=== PATIENT | male | born 1950 | race Caucasian/White ===

== ENCOUNTER 2017-01-15 12:46 | Outpatient (CLI) | payer MEDICARE, OTHER ==
--- NOTE | 2017-01-15 17:08 | XRAY Report ---
TWO VIEW CHEST: 01/15/2017 CLINICAL INDICATION: Cough, hemoptysis. Frontal and lateral views of the chest are compared to previous films of 01/08/[address] 11/06. The cardiac silhouette is within normal limits. Emphysematous changes are stable. There is new consolidation at the right apex. No effusion or pneumothorax is present. IMPRESSION: NEW RIGHT UPPER LOBE CONSOLIDATION, SUPERIMPOSED UPON EMPHYSEMA. FOLLOWUP FILMS FOLLOWI NG APPROPRIATE ANTIBIOTIC THERAPY ARE RECOMMENDED TO DOCUMENT RESOLUTION. JOB #: [id number] EXT JOB #:[id number]
== END 2017-01-15 12:47 | disposition home or self-care (01) ==
LOC: DI 12:46
PROVIDERS: ATTEND Internal Medicine
DX: R91.8 Other nonspecific abnormal finding of lung field (principal); J43.9 Emphysema, unspecified
CPT/HCPCS: 71020

== ENCOUNTER 2017-01-20 10:04 | Outpatient (CLI) | payer MEDICARE, OTHER ==
--- NOTE | 2017-01-20 15:27 | CT Report ---
EXAM: CT CHEST EXAM DATE: 01/20/2017 10:22 AM. CLINICAL HISTORY: Pneumonia COMPARISONS: 11/20/2011, 01/15/2017. TECHNIQUE: Routine helical CT imaging was performed through the chest. IV contrast: None. Reconstruct ions: Coronal and sagittal. In accordance with CT protocol optimization, one or more of the following dose reduction techniques w ere utilized for this exam: automated exposure control, adjustment of mA and/or KV based on patient s ize, or use of iterative reconstructive technique. FINDINGS: Lungs/Pleura: There is a heterogeneous, thick-walled cavitary lesion within the right lung apex. Ther e is some linear hyperdensity which could represent surgical sutures or calcification. There is some right upper lung architectural distortion. There is underlying paraseptal emphysema. There is no evidence of acute consolidation. No pleural eff usion. Mediastinum: Heart size is within normal limits. There are no enlarged axillary, supraclavicular, med iastinal, or hilar lymph nodes. Bones: No acute bony abnormalities are seen. There is increased paravertebral bony formation within t he upper thoracic spine. This is unchanged. Visualized Abdomen: The visualized portions of the upper abdominal organs demonstrate no acute abnorm alities. Other: None. IMPRESSION: 1. Heterogeneous right apical density including thick-walled cavitary lesion, soft tissue component, bronchiectasis, and architectural distortion. Differential considerations include atypical infection, scarring, and/or mass. Six-month interval follow-up may be of utility to exclude developing mass in this region. 2. There is underlying paraseptal emphysema. 3. No acute pulmonary process. 4. Heart size is within normal limits. [facility] Referring Provider Line: [phone] SITE ID: [id number]
== END 2017-01-20 10:05 | disposition home or self-care (01) ==
LOC: DI 10:04
PROVIDERS: ATTEND Internal Medicine
DX: J15.9 Unspecified bacterial pneumonia (principal); J47.9 Bronchiectasis, uncomplicated; J43.9 Emphysema, unspecified
CPT/HCPCS: 71250

== ENCOUNTER 2017-02-02 08:53 | Outpatient (CLI) | payer MEDICARE, OTHER ==
--- NOTE | 2017-02-02 11:00 | XRAY Report ---
TWO VIEW CHEST: 02/02/2017 CLINICAL INDICATION: Followup lung mass. COMPARISON: CT of 01/20/2017, chest x-ray of 01/15/2017. FINDINGS: The cardiac silhouette is within normal limits. Right apical parenchymal opacity, with cys tic changes, persists. There has been no significant interval change. No effusion or pneumothorax is identified. IMPRESSION: STABLE RIGHT APICAL PARENCHYMAL OPACITY WITH CYSTIC CHANGES. NO SIGNIFICANT INTERVAL ORAL NGE. JOB #: [id number] EXT JOB #:[id number]
== END 2017-02-02 08:54 | disposition home or self-care (01) ==
LOC: DI 08:53
PROVIDERS: ATTEND Internal Medicine Critical Care Medicine
DX: R91.8 Other nonspecific abnormal finding of lung field (principal)
CPT/HCPCS: 71020

== ENCOUNTER 2017-02-15 14:43 | Outpatient (CLI) | payer MEDICARE, OTHER ==
[2017-02-15 15:58] LABS: BASOPHILS % (AUTO) 0.1 %; HCT - HEMATOCRIT 38.1 % (42.0-52.0); HGB - HEMOGLOBIN 12.6 g/dL (14.0-18.0); LYMPHOCYTES # (AUTO) 0.5 10^3/uL (1.5-3.5); LYMPHOCYTES % (AUTO) 4.6 %; MEAN CORPUSCULAR HEMOGLOBIN 31.4 pg (27.0-31.0); MEAN CORPUSCULAR VOLUME 95.1 fL (80.0-94.0); MEAN PLATELET VOLUME 7.3 fL (7.4-11.4); MONOCYTES # (AUTO) 0.5 10^3/uL (0.0-1.0); MONOCYTES % (AUTO) 4.3 %; NEUTROPHILS # (AUTO) 9.9 10^3/uL (1.5-6.6); RED BLOOD COUNT 4.01 10^6/uL (4.70-6.10); RED CELL DISTRIBUTION WIDTH 13.6 % (12.0-15.0); UNCORRECTED WHITE BLOOD COUNT 10.9 x10^3/uL; WHITE BLOOD COUNT 10.9 x10^3/uL (4.8-10.8)
[2017-02-16 15:37] LABS: TEST RESULT REPORT (())
[2017-02-19 11:07] LABS: TEST RESULT REPORT (())
[2017-02-19 14:26] LABS: TEST RESULT REPORT (())
== END 2017-02-15 14:44 | disposition home or self-care (01) ==
LOC: LAB 14:43
PROVIDERS: ATTEND Internal Medicine Critical Care Medicine
DX: R04.89 Hemorrhage from other sites in respiratory passages (principal); R91.8 Other nonspecific abnormal finding of lung field
CPT/HCPCS: 36415; 81599; 85025; 86003; 87305

== ENCOUNTER 2017-03-02 08:44 | Outpatient (CLI) | payer MEDICARE, OTHER ==
--- NOTE | 2017-03-02 11:09 | Ultrasound Report ---
RENAL ULTRASOUND: 03/02/2017 CLINICAL INDICATION: Possible mass on outside PET/CT. TECHNIQUE: Real-time scanning was performed with congressional representative static images obtained. FINDINGS: The right kidney measures 12.0 x 5.9 x 6.1 cm, and demonstrates a 1.9 cm cyst. No solid m ass, hydronephrosis, or perinephric collection is seen. The left kidney measures 11.1 x 6.0 x 5.6 cm. Two cortical cysts are seen, the larger measuring 3.3 cm and the smaller measuring 2.8 cm. No solid renal mass, hydronephrosis, or perinephric collection is seen. Prevoid, the bladder measures 5.4 x 5.3 x 5.1 cm, yielding a prevoid volume of 78 mL. Bilateral uret eral jets are visualized. No postvoid residual is present. IMPRESSION: BILATERAL RENAL CYSTS. NO SOLID RENAL MASS IS IDENTIFIED. JOB #: [id number] EXT JOB #:[id number]
== END 2017-03-02 08:45 | disposition home or self-care (01) ==
LOC: DI 08:44
PROVIDERS: ATTEND Internal Medicine Critical Care Medicine
DX: N28.1 Cyst of kidney, acquired (principal)
CPT/HCPCS: 76770

== ENCOUNTER 2017-03-11 21:20 | Emergency (ER) | payer MEDICARE, OTHER ==
[2017-03-12 00:17] LABS: BASOPHILS % (AUTO) 0.2 %; EOSINOPHILS # (AUTO) 0.1 10^3/uL (0.0-0.7); EOSINOPHILS % (AUTO) 0.7 %; HCT - HEMATOCRIT 35.5 % (42.0-52.0); HGB - HEMOGLOBIN 12.1 g/dL (14.0-18.0); LYMPHOCYTES # (AUTO) 0.8 10^3/uL (1.5-3.5); LYMPHOCYTES % (AUTO) 7.2 %; MEAN CORPUSCULAR HGB CONC 34.1 g/dL (32.0-36.0); MEAN CORPUSCULAR VOLUME 93.7 fL (80.0-94.0); MEAN PLATELET VOLUME 7.1 fL (7.4-11.4); MONOCYTES # (AUTO) 0.9 10^3/uL (0.0-1.0); MONOCYTES % (AUTO) 8.1 %; NEUTROPHILS # (AUTO) 9.3 10^3/uL (1.5-6.6); NEUTROPHILS % (AUTO) 83.8 %; NUCLEATED RED BLOOD CELLS AUTO 0.1 /100WBC; RED BLOOD COUNT 3.79 10^6/uL (4.70-6.10); RED CELL DISTRIBUTION WIDTH 14.4 % (12.0-15.0); UNCORRECTED WHITE BLOOD COUNT 11.1 x10^3/uL; WHITE BLOOD COUNT 11.1 x10^3/uL (4.8-10.8)
[2017-03-12 00:23] LABS: INR 1.1 (0.8-1.2); PT - PROTHROMBIN TIME 12.3 secs (9.9-12.6)
[2017-03-12 00:28] LABS: ALBUMIN/GLOBULIN RATIO 0.9 (1.0-2.2); BILIRUBIN,TOTAL 0.5 mg/dL (0.2-1.0); CALCIUM 9.2 mg/dL (8.5-10.3); CREATININE 1.1 mg/dL (0.6-1.2); POTASSIUM 4.1 mmol/L (3.5-5.0); TOTAL PROTEIN 7.2 g/dL (6.7-8.2)
[2017-03-12] MEDS ORDERED: IOPAMIDOL-300 100 ML VIAL IVP ONE (01:16)
--- NOTE | 2017-03-12 02:23 | CT Preliminary Report ---
Exam: CT Chest Angio (PE) IMPRESSION: 1. Normal pulmonary CT angiogram. No pulmonary emboli. 2. Worsening right upper lobe consolidation adjacent to the large cavitary lesion in the right upper lobe. The cavitary lesion appears to be enlarging and now has increasing debris within the lumen. No discrete lung mass is noted. Associated findings include architectural distortion and bronchiectasis. The presence of new debris raises the possibility of superinfection such as a mycetoma. Complete dif ferential would include an underlying ulnar mass and a sequela of an infectious or inflammatory proce ss. 3. Paraseptal emphysema redemonstrated. No pneumothorax or effusions. 4. No new bulky pathologic mediastinal or hilar adenopathy. [facility] SITE ID: [id number]
--- NOTE | 2017-03-12 02:37 | CT Report ---
EXAM: CT ANGIOGRAM CHEST EXAM DATE: 03/12/2017 01:23 AM. CLINICAL HISTORY: Worsening hemoptysis cavitary lesion. COMPARISON: 01/20/2017. TECHNIQUE: Routine helical imaging was performed through the chest in the pulmonary arterial phase. I V Contrast: 80 mL Isovue-300. Reconstructions: Coronal 3D MIP reconstructions.Sagittal and coronal. In accordance with CT protocol optimization, one or more of the following dose reduction techniques w ere utilized for this exam: automated exposure control, adjustment of mA and/or KV based on patient s ize, or use of iterative reconstructive technique. FINDINGS: Pulmonary Arteries: Diagnostic quality: Adequate through the segmental arteries. No evidence for acute or chronic pulmona ry emboli. RV/LV is within normal limits. There is no interventricular septal bowing. There is no reflux of cont rast material in the IVC. Lungs/Pleura: As before, there is a thick-walled cavitary lesion in the right lung apex with increasi ng luminal debris. Associated findings include significant degrees of bronchiectasis and adjacent are as of consolidation which have both increased since the prior study. Marked adjacent pleural thickeni ng is also noted as before. No active extravasation of contrast. Linear radiopaque calcifications or sutures are seen at the margins of the right lung apex cavitary lesion. Findings could represent post surgical sutures given the stable width of the structure rather than the typical irregularity seen in dystrophic calcifications. Moderate bronchial wall thickening is present in both estefani worse on the r ight than on the left. No endobronchial lesion is identified. Baseline paraseptal emphysema is similar to the previous CT of the chest. No new concerning lung mass or nodule. No left pneumothorax or effusion. Mild left lower lobe atelectasis. Mediastinum: Normal. No cardiac enlargement or adenopathy. Thoracic Aorta: Extensive atheromatous calcified plaques noted in a nondilated thoracic aorta. Thorac ic aorta is ectatic. Upper Abdomen: Incidental small hiatal hernia noted. No acute abnormality in the upper abdomen. Other: Heterogeneous enhancement of the thyroid gland. No supraclavicular or axillary adenopathy is n oted. The subcutaneous soft tissues of the chest wall are normal. 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 No new osteoblastic or osteolytic lesio ns are noted. IMPRESSION: 1. Normal pulmonary CT angiogram. No pulmonary emboli. 2. Worsening right upper lobe consolidation adjacent to the large cavitary lesion in the right upper lobe. The cavitary lesion appears to be enlarging and now has increasing debris within the lumen. No discrete lung mass is noted. Associated findings include architectural distortion and bronchiectasis. The presence of new debris raises the possibility of superinfection such as a mycetoma. Complete dif ferential would include an underlying pulmonary mass and the sequela of an infectious or inflammatory process. 3. Paraseptal emphysema redemonstrated. No pneumothorax or effusions. 4. No new bulky pathologic mediastinal or hilar adenopathy. [facility] Referring Provider Line: [phone] SITE ID: [id number]
--- NOTE | 2017-03-12 02:49 | ED Physician Documentation ---
PD HPI DYSPNEA - Stated complaint Stated Complaint: COUGHING UP BLOOD - Chief complaint Chief Complaint: Resp - History obtained from History obtained from: Patient, Family - History of Present Illness Timing - onset: Chronic Timing - details: Gradual onset, Still present Associated symptoms: Cough, Hemoptysis. No: Wheezing, Chest pain / discomfort, Palpitations Similar symptoms before: Work up / diagnostics, Treatment, Follow up Recently seen: Clinic - Additional information Additional information: Patient is a 66 year old male who is presenting to the emergency department for coughing up blood. Patient states that the symptoms have been going on for months. Patient has seen two different specialists and has CT and bronchs done. Patient states that he has taken antibiotics and is currently on antifungals. Patient states that the blood had subsided but starting yesterday he started coughing up blood again so he came in for evaluation. Aside from the coughing blood patient states he feels well. Review of Systems Constitutional: denies: Fever, Chills Eyes: denies: Decreased vision Ears: denies: Ear pain, Drainage/discharge Nose: denies: Rhinorrhea / runny nose, Congestion Throat: denies: Sore throat Cardiac: denies: Chest pain / pressure, Palpitations, Calf pain Respiratory: reports: Cough, Hemoptysis GI: denies: Nausea, Vomiting Skin: denies: Rash, Lesions Musculoskeletal: denies: Back pain, Extremity pain, Joint pain Endocrine: denies: Easy bruising / bleeding Immunocompromised: denies: Immunocompromised PD PAST MEDICAL HISTORY - Allergies Allergies/Adverse Reactions: Allergies Allergy/AdvReac Type Severity Reaction Status Date / Time No Known Drug Allergies Allergy Verified 03/11/17 21:30 PD ED PE NORMAL - Vitals Vital signs reviewed: Yes - General General: Alert and oriented X 3, No acute distress, Well developed/nourished - HEENT HEENT: Atraumatic, PERRL - Neck Neck: Supple, no meningeal sign, No JVD - Cardiac Cardiac: RRR, No murmur - Respiratory Respiratory: No respiratory distress - Abdomen Abdomen: Soft, Non tender, Non distended - Derm Derm: Normal color, Warm and dry, No rash - Extremities Extremities: No deformity, No edema - Neuro Neuro: Alert and oriented X 3, 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, No motor deficit, No sensory deficit, Normal speech - Psych Psych: Normal mood, Normal affect PD ED PE EXPANDED - Respiratory Respiratory: Rhonchi, Right upper lobe Results - Vitals Vitals: Vital Signs - 24 hr 03/11/17 21:28 Temperature 36.4 C L Heart Rate 81 Respiratory 18 Rate Blood Pressure 167/90 H O2 Saturation 99 Oxygen O2 Source Room air - Labs Labs: Laboratory Tests 03/12/17 03/12/17 03/12/17 00:09 00:09 00:09 WBC 11.1 H RBC 3.79 L Hgb 12.1 L Hct 35.5 L MCV 93.7 MCH 32.0 H MCHC 34.1 RDW 14.4 Plt Count 186 MPV 7.1 L Neut # 9.3 H Lymph # 0.8 L [place] # 0.9 Eos # 0.1 Baso # 0.0 Absolute Nucleated RBC 0.02 Nucleated RBCs 0.1 PT 12.3 INR 1.1 APTT 28.0 Sodium 139 Potassium 4.1 Chloride 104 Carbon Dioxide 27 Anion Gap 8.0 BUN 28 H Creatinine 1.1 Estimated GFR (MDRD) 67 L Glucose 114 H Calcium 9.2 Total Bilirubin 0.5 AST 20 ALT 27 Alkaline Phosphatase 83 Total Protein 7.2 Albumin 3.5 Globulin 3.7 Albumin/Globulin Ratio 0.9 L Lipase 28 - Rads (name of study) CT A chest Radiology: Final report received (worsening cavitary lesion with debris), EMP read contemporaneously PD MEDICAL DECISION MAKING - ED course Complexity details: reviewed old records, reviewed results, re-evaluated patient , considered differential, d/w patient, d/w family ED course: Patient was seen and examined at bedside. IV access was gained and labs were drawn. Imaging was ordered. Patient was well appearing and in no distress. When patient returned from imaging the results were reviewed. Patient was found to have a worsening of the cavitary lesion. Patient stated that he was feeling better and that the hemoptysis had stopped. Patient stated that he felt comfortable going home and following up with his doctor on sunday. patient was given detailed discharge and follow up instructions. Patient was stable for outpatient follow up. Departure - Departure Disposition: Home, Self Care Clinical Impression: Pulmonary cavitary lesion Condition: Stable Instructions: Bronchoscopy Follow-Up: Han Whitehead MD [Primary Care Provider] - Comments: You should continue with your anti fungal medicine. It is important that you follow up with your doctor on sunday for a bronchoscopy. You should return to the emergency department for new, worsening or uncontrollable symptoms.
[2017-03-12 02:57] VITALS: BP 142/69
== END 2017-03-12 03:04 | disposition home or self-care (01) ==
LOC: ED 21:20
DX: J98.4 Other disorders of lung (principal)
CPT/HCPCS: 36415; 71275; 80053; 83690; 85025; 85610; 85730; 99283; Q9967

== ENCOUNTER 2017-09-14 07:56 | Outpatient (CLI) | payer MEDICARE, OTHER | END 2017-09-14 07:57 | disposition home or self-care (01) | LOC: LAB 07:56 | PROVIDERS: ATTEND Internal Medicine Pulmonary Disease | DX: I26.99 Other pulmonary embolism without acute cor pulmonale (principal); J43.9 Emphysema, unspecified | CPT/HCPCS: 36415; 85379 ==